=== PATIENT | female | born 1965 ===

== ENCOUNTER 2017-06-04 18:42 | Emergency (ER) | payer MEDICAID ==
[2017-06-04 18:42] VITALS: BMI 20.5
--- NOTE | 2017-06-04 19:58 | C.PDOC ---
History Of Present Illness 52 y/o female presents to ED with complaints worsening pain to right arm for 2 days. Patient states she has had right arm pain for 2 years that radiates to hand associated with "pins and needle" feeling. Patient denies weakness, numbness, chest pain, sob, rash or any other complaints at this time. Time Seen by Provider: 06/04/17 19:20 Chief Complaint (Nursing): Upper Extremity Problem/Injury History Per: Patient History/Exam Limitations: no limitations Onset/Duration Of Symptoms: Days Current Symptoms Are (Timing): Still Present Past Medical History Reviewed: Historical Data, Nursing Documentation, Vital Signs Vital Signs: Last Vital Signs Temp 98.5 F 06/04/17 20:20 Pulse 98 H 06/04/17 20:20 Resp 20 06/04/17 20:20 BP 108/73 06/04/17 20:20 Pulse Ox 98 06/04/17 20:20 - Medical History PMH: Arthritis, Asthma, Depression, Gastritis, HIV, HTN, Hypercholesterolemia, Osteoporosis Surgical History: (x 2) - [facility] Procedures INDIVID PSYCHOTHERAP NEC (03/13/14) OTHER GROUP THERAPY (03/13/14) Family History: States: No Known Family Hx - Social History Hx Tobacco Use: Yes Hx Alcohol Use: No Hx Substance Use: No - Immunization History Hx Tetanus Toxoid Vaccination: Yes Hx Influenza Vaccination: No Hx Pneumococcal Vaccination: No Review Of Systems Except As Marked, All Systems Reviewed And Found Negative. Constitutional: Negative for: Fever, Chills Cardiovascular: Negative for: Chest Pain Respiratory: Negative for: Shortness of Breath Gastrointestinal: Negative for: Nausea, Vomiting Musculoskeletal: Positive for: Arm Pain Skin: Negative for: Rash Neurological: Negative for: Weakness, Numbness Physical Exam - Physical Exam Appears: Non-toxic, No Acute Distress Skin: Normal Color, Warm, Dry, No Rash Head: Atraumatic, Normacephalic Eye(s): bilateral: Normal Inspection, PERRL, EOMI Nose: Normal Oral Mucosa: Moist Neck: Normal ROM, Supple Chest: Symmetrical Cardiovascular: Rhythm Regular, No Friction Rub, No Murmur Respiratory: Normal Breath Sounds, No Wheezing Extremity: Normal ROM, No Tenderness, Capillary Refill (<2 seconds), No Deformity, No Swelling Pulses: Left Radial: Normal, Right Radial: Normal Neurological/Psych: Oriented x3, Normal Speech, Normal Cognition, Normal Motor, Normal Sensation Gait: Steady ED Course And Treatment O2 Sat by Pulse Oximetry: 96 (RA) Pulse Ox Interpretation: Normal Disposition - Disposition Referrals: Dean Martines MD [Medical Doctor] - Disposition: HOME/ ROUTINE Disposition Time: 20:13 Condition: GOOD Additional Instructions: Follow up with the medical doctor/clinic within 1-2 days. return if worsened. Prescriptions: Diazepam [Valium] 2 mg PO TID #21 tab Ibuprofen [Motrin] 1 tab PO TID PRN #30 tab PRN Reason: Pain Instructions: Carpal Tunnel Syndrome (ED) Forms: [email or web address] (Czech) Print Language: FAROESE - Clinical Impression Clinical Impression: Carpal tunnel syndrome, Chronic wrist pain - PA / WELT RANDER / Resident Statement MD/DO has reviewed & agrees with the documentation as recorded. - Scribe Statement The provider has reviewed the documentation as recorded by the Chantalibyovanny Muñoz All medical record entries made by the Chantalibyovanny were at my direction and personally dictated by me. I have reviewed the chart and agree that the record accurately reflects my personal performance of the history, physical exam, medical decision making, and the department course for this patient. I have also personally directed, reviewed, and agree with the discharge instructions and disposition.
[2017-06-04 20:21] VITALS: BP 108/73; PULSE 98; RESP 20; TEMP 98.5
[2017-06-05 02:15] VITALS: O2SAT 96
== END 2017-06-04 20:20 | disposition home or self-care (01) ==
LOC: C.ER 18:42
DX: M25.531 Pain in right wrist (principal); G56.01 Carpal tunnel syndrome, right upper limb
CPT/HCPCS: 96372; 99283; J1885

== ENCOUNTER 2018-11-13 06:22 | Day surgery (SDC) | payer MEDICAID ==
[2018-11-13 06:54] VITALS: BMI 21.6
[2018-11-13] MEDS ORDERED: Lidocaine Hydrochloride 5 ML INJ ONE (07:49)
[2018-11-13] MEDS ORDERED: Propofol 10 mg/ml Inj (20 ML) ONE (07:49)
--- NOTE | 2018-11-13 08:10 | CP.SDSHP ---
Same Day Surgery H & P - History Proposed Procedure: EGD with biopsy, possible dilation Pre-Op Diagnosis: dysphagia - Previous Medical/Surgical History Cardiac: Hypertension Comments: HIV. Asthma Previous Surgical History: - Allergies Allergies: Allergies No Known Allergies Allergy (Verified 11/13/18 06:54) - Current Medications Current Medications: reviewed, per reconciliation - Physical Exam General Appearance: wdwn nad Vital Signs: Vital Signs 11/13/18 07:14 Temperature 98.4 F Pulse Rate 72 Respiratory 19 Rate Blood Pressure 125/67 O2 Sat by Pulse 99 Oximetry Mental Status: Alert & Oriented x3 Heart: WNL Lungs: WNL GI: WNL - {Optional Preform as Required} Abdomen: WNL - Impression Impression: dysphagia Pt. Evaluated Today:Candidate for Anesthesia & Procedure: Yes - Date & Time Date: 11/13/18 Time: 08:10 Short Stay Discharge - Short Stay Discharge Admitting Diagnosis/Reason for Visit: DYSPHAGIA Disposition: HOME/ ROUTINE Referrals: Dean Martines MD [Primary Care Provider] -
[2018-11-13 08:51] VITALS: O2SAT 100
[2018-11-13] MEDS ORDERED: Pantoprazole 40 mg EC Tab PO ONE (09:20)
[2018-11-13 09:55] VITALS: BP 119/66; PULSE 69; RESP 18; TEMP 98.1
== END 2018-11-13 09:50 | disposition home or self-care (01) ==
LOC: C.ENDO 06:22
PROVIDERS: ATTEND Internal Medicine Gastroenterology
DX: K29.00 Acute gastritis without bleeding (principal); K29.50 Unspecified chronic gastritis without bleeding; R13.10 Dysphagia, unspecified; I10 Essential (primary) hypertension
CPT/HCPCS: 43239; 88305; 88312; 88313; 88342; J2704